=== PATIENT | female | born 1985 | race Caucasian/White ===

== ENCOUNTER 2019-02-11 14:51 | Emergency (ER) | payer MEDICAID, OTHER ==
[~2019-02-11] VITALS: Ht 167.6 cm; Wt 109.1 kg
[~2019-02-11 14:51] MED LIST: CYCL-1 PO; TRAM50TA2 PO
[2019-02-11 14:53] VITALS: BP 124/79
[2019-02-11] MEDS ORDERED: predniSONE 20 mg tablet PO ONE (15:30)
[2019-02-11] MEDS ORDERED: PRED10TA23 PO (15:34)
[2019-02-11] MEDS ORDERED: FAMO40TA73 PO (15:34)
[2019-02-11] MEDS ORDERED: DIPH-423 PO (15:34)
== END 2019-02-11 15:51 | disposition left against medical advice (07) ==
LOC: ER 14:51
DX: L23.7 Allergic contact dermatitis due to plants, except food (principal); Z79.899 Other long term (current) drug therapy
CPT/HCPCS: 99283; J7512

== ENCOUNTER 2020-05-12 09:37 | Emergency (ER) | payer MEDICAID ==
[~2020-05-12] VITALS: Ht 167.6 cm; Wt 127.5 kg
[~2020-05-12 09:37] MED LIST changes: +DIPH-423 PO; +FAMO40TA73 PO
[2020-05-12 09:45] VITALS: BP 114/69
[2020-05-12] MEDS ORDERED: PRED10TA PO (10:43)
[2020-05-12] MEDS ORDERED: DIPH25TA62 PO (10:43)
[2020-05-12] MEDS ORDERED: FAMO10TA41 PO (10:43)
== END 2020-05-12 10:55 | disposition home or self-care (01) ==
LOC: ER 09:37
DX: L23.7 Allergic contact dermatitis due to plants, except food (principal); Z79.899 Other long term (current) drug therapy
CPT/HCPCS: 99283

== ENCOUNTER 2020-08-10 00:27 | Emergency (ER) | payer MEDICAID ==
[~2020-08-10] VITALS: Ht 165.1 cm; Wt 110.0 kg
[~2020-08-10 00:27] MED LIST changes: +DIPH25TA62 PO; +FAMO10TA41 PO; +PRED10TA PO
[2020-08-10] MEDS ORDERED: LIDOcaine Viscous 15ml cup MM PRN (01:35)
[2020-08-10] MEDS ORDERED: clindamycin 150mg capsule PO ONE (01:40)
[2020-08-10] MEDS ORDERED: CLIN-97 PO (02:28)
[2020-08-10] MEDS ORDERED: CHLO118M PO (02:28)
[2020-08-10 03:52] VITALS: BP 173/110
== END 2020-08-10 03:54 | disposition home or self-care (01) ==
LOC: ER 00:27
DX: K04.7 Periapical abscess without sinus (principal); K02.9 Dental caries, unspecified; K05.319 Chronic periodontitis, localized, unspecified severity; Z79.899 Other long term (current) drug therapy
CPT/HCPCS: 41800; 99284

== ENCOUNTER 2021-12-07 01:24 | Emergency (ER) | payer MEDICAID ==
[~2021-12-07] VITALS: Ht 165.1 cm; Wt 139.4 kg
[~2021-12-07 01:24] MED LIST changes: +CHLO118M PO; +CLIN-97 PO
[2021-12-07 01:26] VITALS: BP 160/99
== END 2021-12-07 03:58 | disposition left against medical advice (07) ==
LOC: ER 01:24
DX: M54.50 Low back pain, unspecified (principal); Z53.21 Procedure and treatment not carried out due to patient leaving prior to being seen by health care provider